=== PATIENT | female | born 1945 | race Caucasian/White ===

== ENCOUNTER → 2019-01-13 | Outpatient (CLI) | payer OTHER ==
[~2019-01-13] MED LIST: ASPIR 8181 MG PO; CALCIUM 600 +1 EAC1 PO; NORCO 5-325 TA1 EACH PO; OMEPRAZOLE; PRAVACHOL20 MG PO
== END ==
LOC: BC 09:46
DX: Z12.31 Encounter for screening mammogram for malignant neoplasm of breast (principal)

== ENCOUNTER → 2020-05-26 | Outpatient (CLI) | payer OTHER | LOC: RAD 14:12 | PROVIDERS: ATTEND Internal Medicine | DX: Z12.31 Encounter for screening mammogram for malignant neoplasm of breast (principal); N64.89 Other specified disorders of breast ==

== ENCOUNTER 2021-04-13 20:45 | Emergency (ER) | payer OTHER ==
[~2021-04-13] VITALS: Ht 157.5 cm; Wt 77.1 kg
[2021-04-13 22:04] VITALS: BP 156/85
== END 2021-04-13 22:06 | disposition home or self-care (01) ==
LOC: ER 20:45
DX: S00.83XA Contusion of other part of head, initial encounter (principal); E78.5 Hyperlipidemia, unspecified; F17.210 Nicotine dependence, cigarettes, uncomplicated; Z79.82 Long term (current) use of aspirin; Z88.0 Allergy status to penicillin; Z88.2 Allergy status to sulfonamides; Z72.89 Other problems related to lifestyle; W18.09XA Striking against other object with subsequent fall, initial encounter; Y93.89 Activity, other specified; Y92.511 Restaurant or cafe as the place of occurrence of the external cause; Y99.8 Other external cause status

== ENCOUNTER 2021-08-25 09:51 | Inpatient (IN) | payer OTHER ==
[~2021-08-25] VITALS: Ht 157.5 cm; Wt 72.6 kg
[2021-08-25 09:57] VITALS: BP 140/51
[2021-08-25 10:41] LABS: HEMATOCRIT 37.9 % (37.0-47.0); HEMOGLOBIN 12.4 gm/dL (12.0-15.0); MCH 28.7 pg (26.0-34.0); MCHC 32.6 g/dL (28.0-37.0); MCV 87.8 fL (80.0-100.0); PLATELET COUNT 217 thou/uL (150-400); RBC 4.31 mil/uL (4.20-5.00); RDW 13.8 % (10.5-14.5)
[2021-08-25 10:42] LABS: CALCIUM 9.1 mg/dL (8.5-10.1); CREATININE 1.4 mg/dL (0.6-1.0); POTASSIUM 3.5 mmol/L (3.5-5.1)
[2021-08-25 13:47] LABS: ABSOLUTE NEUTROPHILS 14.6 thou/uL (1.4-8.2)
[2021-08-25 14:37] VITALS: BP 107/41
[2021-08-25 14:53] LABS: URINE BILIRUBIN NEGATIVE (Negative); URINE BLOOD 3+ (Negative); URINE CLARITY SL CLOUDY; URINE COLOR YELLOW; URINE GLUCOSE-RANDOM* NEGATIVE (Negative); URINE KETONES 1+ (Negative); URINE LEUKOCYTES-REFLEX NEGATIVE (Negative); URINE NITRITE-REFLEX NEGATIVE (Negative); URINE PROTEIN (DIPSTICK) NEGATIVE (Negative); URINE SPECIFIC GRAVITY <= 1.005 (1.005-1.035); URINE UROBILINOGEN 0.2 E.U./dl (0.2-1.0)
[2021-08-25 15:14] LABS: CASTS None Seen /LPF (None Seen); SQUAMOUS 0-3 Few /LPF (0-3)
[2021-08-25 15:15] LABS: BACTERIA-REFLEX 1-9 Few /HPF (None Seen); CRYSTALS None Seen /LPF (None Seen); URINE RBC >20 Many /HPF (NONE SEEN); URINE WBC-REFLEX 0-5 Rare /HPF (0-5)
[2021-08-25 18:08] VITALS: BP 116/52
[2021-08-25] MEDS ORDERED: BIOTIN1 MG PO (21:33)
[2021-08-25] MEDS ORDERED: B12-FOLIC ACID1 EACH PO (21:34)
[2021-08-26 03:30] VITALS: BP 113/44
[2021-08-26 03:56] LABS: BASOPHILS 0.3 % (0.0-2.0); HEMATOCRIT 34.5 % (37.0-47.0); HEMOGLOBIN 11.2 gm/dL (12.0-15.0); LYMPHOCYTES 5.9 % (24.0-44.0); MCHC 32.4 g/dL (28.0-37.0); MCV 89.5 fL (80.0-100.0); MONOCYTES 2.6 % (1.0-8.0); PLATELET COUNT 159 thou/uL (150-400); POLYS 91.2 % (36.0-66.0); RBC 3.85 mil/uL (4.20-5.00); RDW 13.9 % (10.5-14.5); WBC 14.3 thou/uL (4.0-11.0)
--- NOTE | 2021-08-26 03:56 | NUR ---
ASSUMED CARE OF PT AT 1900. BEDSIDE REPORT RECIEVED. GRICELDA ASSESSMENT COMPLETE. PT HAVING BLOOD TINGED URINE, VOIDING C NO DIFFICULTIES. DENIES ANY PAIN AT THIS TIME. LFA PIV PATENT, SECURED C TEGADERM, IVF AND IV ABTS RUNNING PER DEC. PT HAS INDEPENDENT BED MOBILITY. HOURLY ROUNDING CONTINUING. ALL NEEDS MET, CALL LIGHT IN REACH
[2021-08-26 04:10] LABS: CALCIUM 8.8 mg/dL (8.5-10.1); CREATININE 0.8 mg/dL (0.6-1.0); MAGNESIUM 1.6 mg/dL (1.8-2.4); POTASSIUM 4.3 mmol/L (3.5-5.1)
[2021-08-26 07:27] VITALS: BP 135/52
--- NOTE | 2021-08-26 09:46 | NUR ---
Chart review. Renal stone, had stent placed yesterday. CM visited with her at bedside. She is A & o x 4, pleasant and able to make her needs know. She used to work here in the [employer] department. She live alone, has a supportive sister jesus that lives in [place], has friends that can assist if needed. [address]th floor apartment, just moved there 2 months ago. [address] to apartment. Bilat handrails, able to use elevator when needed. Manage own medications. Uses a walking stick. Drives vehicle. No anticipated needs for pr. Nd home Sunday08/27/21, she will have transportation home at pr.
--- NOTE | 2021-08-26 10:48 | NUR ---
Assumed care of pt at 0700. Pt a&ox4. IVF and IV antibiotics infusing. SBA. Denies pain. Per urology group, ok to discharge to home today. Call light within reach. Fall precautions in place. Will continue to monitor.
[2021-08-26] MEDS ORDERED: FLOMAX0.4 MG PO (14:24)
[2021-08-26] MEDS ORDERED: NORCO5 PO (14:25)
[2021-08-26 15:38] VITALS: BP 135/52
== END 2021-08-26 15:59 | disposition home or self-care (01) | DRG 660 ==
LOC: ER 09:51 → 4S 11:48 → EROBS 11:48 → 4S 18:23
PROVIDERS: Emergency Medicine; Nurse Practitioner; ADMIT Internal Medicine; ATTEND Internal Medicine
DX: N13.2 Hydronephrosis with renal and ureteral calculous obstruction (principal); K56.7 Ileus, unspecified; N13.4 Hydroureter; Z20.822 Contact with and (suspected) exposure to COVID-19; N17.9 Acute kidney failure, unspecified; D72.829 Elevated white blood cell count, unspecified; Z60.2 Problems related to living alone; E78.5 Hyperlipidemia, unspecified; K52.9 Noninfective gastroenteritis and colitis, unspecified; Z88.2 Allergy status to sulfonamides; Z88.0 Allergy status to penicillin; Z87.891 Personal history of nicotine dependence; Z79.82 Long term (current) use of aspirin; Z79.899 Other long term (current) drug therapy
CPT/HCPCS: 10102; 50010; 50101; 51620; 51767; 56674; 56815; 58565; 62110; 62900; 70005

== ENCOUNTER → 2021-10-10 | Outpatient (CLI) | payer OTHER ==
[~2021-10-10] MED LIST changes: +B12-FOLIC ACID1 EACH PO; +BIOTIN1 MG PO; +FLOMAX0.4 MG PO; +NORCO5 PO
== END ==
LOC: ULTRA 10:09
PROVIDERS: ATTEND Urology
DX: N20.1 Calculus of ureter (principal)